=== PATIENT | female | born 1980 | race African-American/Black ===

== ENCOUNTER 2025-07-26 09:05 | Emergency (ER) | payer OTHER ==
[~2025-07-26] VITALS: Ht 165.1 cm; Wt 100.0 kg
[2025-07-26 09:17] VITALS: TEMP 36.6; O2SAT 98
[2025-07-26 10:01] VITALS: BP 163/89; PULSE 60; RESP 22; O2SAT 98
[2025-07-26] MEDS ORDERED: POLYETHYLENE GLYCOL 3350 (17GM) 1 DOSE PACK PO SCH (11:30)
[2025-07-26] MEDS: NA PHOS,M-B/NA PHOS,DI-BA ENEMA 118ML PR SCH (11:39)
[2025-07-26] MEDS: POLYETHYLENE GLYCOL 3350 (17GM) 1 DOSE PACK PO ONE (11:39)
[2025-07-26] MEDS: BISACODYL 10MG SUPP PR SCH (11:39)
[2025-07-26] MEDS ORDERED: MAGN296S70 MT (11:59)
[2025-07-26] MEDS ORDERED: POLY17PO3 MT (11:59)
[2025-07-26] MEDS ORDERED: NA P133E RC (11:59)
== END 2025-07-26 12:22 | disposition home or self-care (01) ==
LOC: ER 09:05
DX: K56.41 Fecal impaction (principal); K56.699 Other intestinal obstruction unspecified as to partial versus complete obstruction
CPT/HCPCS: 74176; 99284; Z7610